=== PATIENT | female | born 2000 | race Hispanic/Latino ===

== ENCOUNTER 2020-04-25 07:55 | Emergency (ER) | payer OTHER ==
[~2020-04-25] VITALS: Ht 162.6 cm; Wt 92.1 kg
[2020-04-25] MEDS ORDERED: SODIUM CHLORIDE 0.9% 1000ML 1,000 ML IV SCH (08:45)
[2020-04-25] MEDS ORDERED: CEFTRIAXONE SOD 1 GM/NS 50 ML 50 ML IV ONE (08:45)
[2020-04-25] MEDS ORDERED: AZITHROMYCIN 250 MG TAB PO STA (08:47)
[2020-04-25] MEDS ORDERED: KETOROLAC TROMETHAMINE 30 MG/ML VIAL IV STA (08:54)
[2020-04-25] MEDS ORDERED: PHENAZOPYRIDINE HCL 100 MG TAB PO SCH (09:00)
--- NOTE | 2020-04-25 09:03 | Emergency Department Note ---
History of Present Illnes History of Present Illness Chief Complaint: Genitourinary History of Present Illness This is a 20 year old transgender female (male gender), who presents with acute onset burning on urination as well as urinary frequency that started last evening approximate 6 PM. Upon awakening this morning and urinating, blood was noted in the urine. The urinary frequency has continued and the hematuria has increased in amount. She is having some suprapubic "pressure and discomfort," and right flank pain that started this morning. The flank pain is intermittent, sharp and stabbing. Patient states that she has had frequent UTIs throughout her life, but has never been seen by urologist. Denies any fever, chills, nausea, or vomiting. There is no penile discharge. Patient has been having anal receptive intercourse and denies any vaginal intercourse. Patient complains of redness and irritation at the tip of the penis. She states that this irritation is chronic, but certainly worse over the last 24 hours. 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: No Onset (how long ago): hour(s) (15) Location: penis, suprapubic and right flank Quality: burning, aching, pain Radiation: Reports non-radiation Severity: moderate Onset quality: sudden Duration (how long): hour(s) (15) Timing of current episode: constant Progression: worsening Chronicity: new Context: Denies recent illness, Denies recent surgery, Denies trauma/injury, Denies new medications Relieving factors: none Exacerbating factors: none Associated symptoms: Reports denies other symptoms Treatments prior to arrival: none Risk factors: hx of UTI Past Medical/Family History Physician Review I have reviewed the patient's past medical and family history. Any updates have been documented here. Past Medical History Recent Fever: No Clinical Suspicion of Infectio: Yes New/Unexplained Change in Ment: No Other Medical History: Hx of UTI - last in 11/2019; Past Surgical History: None Social History Smoking Cessation: Never Smoker Alcohol Use: Occasional Any Illegal Drug Use: No TB Exposure/Symptoms: No Physically hurt or threatened: No Family History Family history of heart diseas: No Other Any Pre-Existing Lines (PICC,: No Is patient up to date on immun: No Review of Systems Review of Systems Constitutional: Denies chills, Denies fever, Denies weakness EENTM: Reports no symptoms Cardiovascular: Reports no symptoms Respiratory: Reports no symptoms Gastrointestinal: Reports abdominal pain (suprapubic;); Denies constipation, Denies diarrhea, Denies nausea, Denies vomiting Genitourinary: Reports dysuria, Reports frequency, Reports hematuria, Reports pain (inflammation of tip of penis;); Denies discharge Musculoskeletal: Reports no symptoms Integumentary: Reports no symptoms Neurological: Reports no symptoms Psychological: Reports no symptoms Review of other systems: All other systems negative Physical Exam Related Data Allergies: Coded Allergies: No Known Allergies (Unverified , 04/25/20) Vital signs reviewed: Yes Physical Exam CONSTITUTIONAL Constitutional: Present well-developed, Present well-nourished; Absent distressed, Absent ill appearing HENT HENT: Present normocephalic, Present atraumatic, Present oropharynx clear/moist, Present nose normal; Absent rhinorrhea HENT L/R: Present left ext ear normal, Present right ext ear normal EYES Eyes: Reports PERRL, Reports conjunctivae normal NECK Neck: Present ROM normal; Absent supple, Absent JVD, Absent cervical adenopathy PULMONARY Pulmonary: Present effort normal, Present breath sounds normal CARDIOVASCULAR Cardiovascular: Present regular rhythm, Present heart sounds normal, Present capillary refill normal, Present normal rate; Absent murmur GASTROINTESTINAL Abdominal: Present soft, Present nontender, Present bowel sounds normal, Present right CVA tenderness GENITOURINARY Genitourinary: Present other (uncircumcised male, testes descended bilaterally with no masses, mildly edematous, erythematous, tender, tip of the penis, with no lesions or discharge;) SKIN Skin: Present warm, Present dry; Absent rash MUSCULOSKELETAL Musculoskeletal: Present ROM normal NEUROLOGICAL Neurological: Present alert, Present oriented x 3, Present no gross motor or sensory deficits PSYCHOLOGICAL Psychological: Present mood/affect normal, Present judgement normal Results Laboratory Laboratory UA - barbara- moderate, ket - trace, blo - large, pro- > 300 mg/dl, nit - positive, tresa - large; CBC - nl except for WBC - 13.8, H/H = 12.8/37.9; CMP - nl except for K+ = 3.4; Lab results reviewed: Yes Imaging Imaging results reviewed: Yes Impressions [place] [address] Patient Name: DEBRA YOUNG MR #: [id number] : 2000 Age/Sex: 20/F Req #: [id number] [facility] Physician: Ordered by: BRANDT HANNAH MD Report #: [id number] Location: [facility] Room/Bed: Procedure: [id number] HOPD/CT ABD/PEL WO CONTRAST-HOPD Exam Date: 04/25/20 Exam Time: 0856 REPORT STATUS: Signed EXAM: CT Abdomen and Pelvis WITHOUT contrast INDICATION: Right flank pain and hematuria. COMPARISON: None. TECHNIQUE: Abdomen and pelvis were scanned utilizing a multidetector helical scanner from the lung base to the pubic symphysis without administration of IV contrast. Absence of intravenous contrast decreases sensitivity for detection of focal lesions and vascular pathology. Coronal and sagittal reformations were obtained. Routine protocol was performed. IV CONTRAST: None ORAL CONTRAST: None COMPLICATIONS: None RADIATION DOSE: Total DLP: 829.47 mGy*cm Estimated effective dose: (DLP x 0.015 x size factor) mSv CTDIvol has been reviewed. It is below the limits set by the Radiation Protocol Committee (RPC). Dose modulation, iterative reconstruction, and/or weight based adjustment of the mA/kV was utilized to reduce the radiation dose to as low as reasonably achievable. FINDINGS: LINES and TUBES: None. LOWER THORAX: Unremarkable HEPATOBILIARY: No focal hepatic lesions. No biliary ductal dilation. GALLBLADDER: No radio-opaque stones or sludge. No wall thickening. SPLEEN: No splenomegaly. PANCREAS: No focal masses or ductal dilatation. ADRENALS: No adrenal nodules KIDNEYS/URETERS: No hydronephrosis. No cystic or solid mass lesions. No stones. GI TRACT: No abnormal distention, wall thickening, or evidence of bowel obstruction. Appendix is normal. PELVIC ORGANS/BLADDER: Unremarkable. LYMPH NODES: There are multiple prominent lymph nodes in the right lower quadrant, none of which meet criteria for pathologic enlargement. VESSELS: Unremarkable. PERITONEUM / RETROPERITONEUM: No free air or fluid. BONES: Unremarkable. SOFT TISSUES: Unremarkable. IMPRESSION: 1. No evidence of renal stones or hydroureteronephrosis bilaterally. 2. Multiple prominent lymph nodes in the right lower quadrant which can be seen with mesenteric adenitis, a self-limiting inflammatory process that can present clinically with right lower quadrant pain. Signed by: Duncan Lunsford MD on 04/25/2020 9:24 AM Assessment & Plan Medical Decision Making MDM - Increase water intake, recommended at least 1 gallon of water per day for the next several days until infection is cleared - Take the Pyridium as directed, and follow-up if your symptoms persist after being on antibiotics for 48 hours. Return to the emergency room if symptoms worsen. - It is very important to follow-up with urology, regarding history of recurrent urinary tract infection. Please take the copies of diagnostics performed today in the ED with you to that visit. Reassessment Reassessment time: 10:00 Reassessment Pt feeling much better! Still having urinary frequency, but pain is decreased and no hematuria. Assessment & Plan Final Impression: (1) Acute hemorrhagic cystitis (2) Urethritis (3) Urinary frequency (4) Dysuria Depart Disposition: HOME, SELF-[facility] Meds Active Scripts Phenazopyridine Hcl (PHENAZOPYRIDINE HCL) 200 Mg Tablet, 1 TAB PO BID for urinary tract infection for 10 Days, #20 0 Refills Prov:BRANDT HANNAH MD 04/25/20 Cefdinir (OMNICEF) 300 Mg Capsule, 300 MG PO BID for urinary tract infection for 10 Days, #20 CAP 0 Refills Prov:BRANDT HANNAH MD 04/25/20 Medications in the ED Sodium Chloride 1,000 ml @ 0 mls/hr Q0M IV ; Start 04/25/20 at 08:45; Stop 05/25/20 at 08:44; Status UNV Ceftriaxone Sodium 50 ml @ 100 mls/hr ONCE ONCE IV ; Start 04/25/20 at 08:45; Stop 04/25/20 at 09:14; Status UNV Phenazopyridine HCl 200 mg PC PO ; Start 04/25/20 at 09:00; Stop 05/25/20 at 08:59; Status UNV BARNDT HANNAH MD Apr 25, 2020 09:03
[2020-04-25] MEDS ORDERED: SODIUM CHLORIDE 0.9% 1000ML 1,000 ML ONE (09:05)
[2020-04-25] MEDS ORDERED: AZITHROMYCIN 250 MG TAB ONE (09:05)
--- OUTSIDE RECORDS SUMMARY | 2020-04-25 09:14 | XMS REPORT | Continuity of Care Document ---
Author Author [facility] Organization [facility] Address [address] [place] [address] Phone Unavailable Care Team Providers Care [employer] Maker Name Role Phone Unavailable Unavailable Payers Payer Name Policy Type Policy Number Effective Date Expiration Date S ource Problems This patient has no known problems. Allergies, Adverse Reactions, Alerts Allergy Name Allergy Type Status Severity Reaction(s) Onset Date Inacti ve Date Treating Clinician Comments Source No Known Allergies DA Active U 2020-03-13 00:00:00 [facility] Medications This patient has no known medications. Procedures This patient has no known procedures. Results Test Description Test Time Test Comments Results Result Comments Source Novel Coronavirus 2019 nCoV 2020-03-15 20:40:00 Test Item Novel Coronavirus 2019 nCoV (test code = COVID19) Negative Nega tive Does patient have the clinical criteria consistent with COVID-19? YIs the patien t going to be discharged home? Y- XR CHEST 1 [id number] 00:37:00 FAX: Aster Gregory NP [place]: B St: REG Name: DEBRA STANLEY [facility] : [birth year] Age/S: 20/F [address] Unit #: [id number] Loc: [place], [place] [address] Phys: Aster Gregory SCREEN [employer]INTING [employer]IL [employer]PARER Acct: [id number] Dis Date: Status: REG ER PHONE #: [phone] Exam Date: 03/14/202033 FAX #: [phone] Reason: COUGH EXAMS: CPT CODE: [id number] XR CHEST 1 V 16910 EXAM: - XR CHEST 1 V HISTORY: Cough. COMPARISON: None available time of interpretation. FINDINGS: Single AP view of the chest is provided. Heart size and vascularity are within normal limits. The lungs are clear of focal consolidation. No effusion, pneumothorax, or acute osseous abnormality. IMPRESSION: No radiographic evid ence of acute cardiopulmonary process. at 0037 Reported and signed by: Luke Moore MD CC: Aster Gregory SCREEN PR[employer]ING ST[employer]IL PREPARER Technologist: Michael CASTRO(R) Trnscrd Date/Time/By: 03/14/2020 (0037) : By: [email or web address] Orig Print D/T: S: 03/14/2020 (0041) PAGE 1 Signed Report URINALYSIS COMPLETE 2020-03-14 00:21:00* Test Item Value Reference Range Interpretation Comments UA COLOR (test code = COLU) Light-Yellow YELLOW UA APPEARANCE (test code = APPU) CLEAR CLEAR UA GLUCOSE DIPSTICK (test code = DGLUU) NEGATIVE mg/dL NEGATIVE UA BILIRUBIN DIPSTICK (test code = BILU) NEGATIVE mg/dL NEGATIVE UA KETONE DIPSTICK (test code = KETU) NEGATIVE mg/dL NEGATIVE UA SPECIFIC GRAVITY (test code = SGU) 1.024 1.001-1.035 UA BLOOD DIPSTICK (test code = INGE) Negative mg/dL NEGATIVE UA PH DIPSTICK (test code = ELSIE) 8.0 5.0-8.0 UA PROTEIN DIPSTICK (test code = PROU) 10 (Trace) mg/dL NEGATIVE A UA UROBILINIOGEN DIPSTICK (test code = URO) 2.0 (1+) mg/dL NEGATIVE A UA NITRITE DIPSTICK (test code = JONO) NEGATIVE NEGATIVE UA LEUKOCYTE ESTERASE W REFLEX (test code = LEUUR) 25 Tiffanie/uL (Trace) Tiffanie/uL NEGATIVE A UA WBC (test code = WBCU) per HPF 0-5 UA RBC (test code = RBCU) per HPF 0-5 UA EPITHELIAL CELLS (test code = EPIU) per HPF Few UA BACTERIA (test code = BACU) per HPF NONE Urine Source? Clean CatchUR HCG [id number] 00:21:00* Test Item Value Reference Range Interpretation Comments UR HCG QUAL (test code = HCGQLU) NEGATIVE This HCGQL test is NOT applicable for MALE patients.Check with nurse about probable order error.If Tumor Marker Test needed, nurse should order test "HCGTU"(Test #[id number]) Urine Source? Clean CatchURINALYSIS [id number] 00:21:00* Test Item Value Reference Range Interpretation Comments UA COLOR (test code = COLU) Light-Yellow YELLOW UA APPEARANCE (test code = APPU) CLEAR CLEAR UA GLUCOSE DIPSTICK (test code = DGLUU) NEGATIVE mg/dL NEGATIVE UA BILIRUBIN DIPSTICK (test code = BILU) NEGATIVE mg/dL NEGATIVE UA KETONE DIPSTICK (test code = KETU) NEGATIVE mg/dL NEGATIVE UA SPECIFIC GRAVITY (test code = SGU) 1.024 1.001-1.035 UA BLOOD DIPSTICK (test code = INGE) Negative mg/dL NEGATIVE UA PH DIPSTICK (test code = ELSIE) 8.0 5.0-8.0 UA PROTEIN DIPSTICK (test code = PROU) 10 (Trace) mg/dL NEGATIVE A UA UROBILINIOGEN DIPSTICK (test code = URO) 2.0 (1+) mg/dL NEGATIVE A UA NITRITE DIPSTICK (test code = JONO) NEGATIVE NEGATIVE UA LEUKOCYTE ESTERASE W REFLEX (test code = LEUUR) 25 Tiffanie/uL (Trace) Tiffanie/uL NEGATIVE A UA WBC (test code = WBCU) 0-5 per HPF 0-5 UA RBC (test code = RBCU) 0-2 #/HPF 0-5 UA EPITHELIAL CELLS (test code = EPIU) FEW per HPF FEW UA BACTERIA (test code = BACU) NONE SEEN #/HPF NONE Urine Source? Clean CatchUR HCG [id number] 00:21:00* Test Item Value Reference Range Interpretation Comments UR HCG QUAL (test code = HCGQLU) NEGATIVE This HCGQL test is NOT applicable for MALE patients.Check with nurse about probable order error.If Tumor Marker Test needed, nurse should order test "HCGTU"(Test #[id number]) Urine Source? Clean CatchURINALYSIS [id number] 00:20:00* Test Item Value Reference Range Interpretation Comments UA COLOR (test code = COLU) Light-Yellow YELLOW UA APPEARANCE (test code = APPU) CLEAR CLEAR UA GLUCOSE DIPSTICK (test code = DGLUU) NEGATIVE mg/dL NEGATIVE UA BILIRUBIN DIPSTICK (test code = BILU) NEGATIVE mg/dL NEGATIVE UA KETONE DIPSTICK (test code = KETU) NEGATIVE mg/dL NEGATIVE UA SPECIFIC GRAVITY (test code = SGU) 1.024 1.001-1.035 UA BLOOD DIPSTICK (test code = INGE) Negative mg/dL NEGATIVE UA PH DIPSTICK (test code = ELSIE) 8.0 5.0-8.0 UA PROTEIN DIPSTICK (test code = PROU) 10 (Trace) mg/dL NEGATIVE A UA UROBILINIOGEN DIPSTICK (test code = URO) 2.0 (1+) mg/dL NEGATIVE A UA NITRITE DIPSTICK (test code = JONO) NEGATIVE NEGATIVE UA LEUKOCYTE ESTERASE W REFLEX (test code = LEUUR) 25 Tiffanie/uL (Trace) Tiffanie/uL NEGATIVE A UA WBC (test code = WBCU) per HPF 0-5 UA RBC (test code = RBCU) per HPF 0-5 UA EPITHELIAL CELLS (test code = EPIU) per HPF Few UA BACTERIA (test code = BACU) per HPF NONE Urine Source? Clean CatchUR HCG [id number] 00:20:00* Test Item Value Reference Range Interpretation Comments UR HCG QUAL (test code = HCGQLU) Urine Source? Clean Catch
--- NOTE | 2020-04-25 09:27 | Diagnostic Imaging Report ---
EXAM: CT Abdomen and Pelvis WITHOUT contrast INDICATION: Right flank pain and hematuria. COMPARISON: None. TECHNIQUE: Abdomen and pelvis were scanned utilizing a multidetector helical scanner from the lung base to the pubic symphysis without administration of IV contrast. Absence of intravenous contrast decreases sensitivity for detection of focal lesions and vascular pathology. Coronal and sagittal reformations were obtained. Routine protocol was performed. IV CONTRAST: None ORAL CONTRAST: None COMPLICATIONS: None RADIATION DOSE: Total DLP: 829.47 mGy*cm Estimated effective dose: (DLP x 0.015 x size factor) mSv CTDIvol has been reviewed. It is below the limits set by the Radiation Protocol Committee (RPC). Dose modulation, iterative reconstruction, and/or weight based adjustment of the mA/kV was utilized to reduce the radiation dose to as low as reasonably achievable. FINDINGS: LINES and TUBES: None. LOWER THORAX: Unremarkable HEPATOBILIARY: No focal hepatic lesions. No biliary ductal dilation. GALLBLADDER: No radio-opaque stones or sludge. No wall thickening. SPLEEN: No splenomegaly. PANCREAS: No focal masses or ductal dilatation. ADRENALS: No adrenal nodules KIDNEYS/URETERS: No hydronephrosis. No cystic or solid mass lesions. No stones. GI TRACT: No abnormal distention, wall thickening, or evidence of bowel obstruction. Appendix is normal. PELVIC ORGANS/BLADDER: Unremarkable. LYMPH NODES: There are multiple prominent lymph nodes in the right lower quadrant, none of which meet criteria for pathologic enlargement. VESSELS: Unremarkable. PERITONEUM / RETROPERITONEUM: No free air or fluid. BONES: Unremarkable. SOFT TISSUES: Unremarkable. IMPRESSION: 1. No evidence of renal stones or hydroureteronephrosis bilaterally. 2. Multiple prominent lymph nodes in the right lower quadrant which can be seen with mesenteric adenitis, a self-limiting inflammatory process that can present clinically with right lower quadrant pain. Signed by: Duncan Lunsford MD on 04/25/2020 9:24 AM
[2020-04-25] MEDS ORDERED: CEFDINIR300 MG PO (10:32)
[2020-04-25 10:33] VITALS: BP 128/68
[2020-04-25] MEDS ORDERED: PHENAZOPYRIDIN200 MG PO (10:35)
== END 2020-04-25 10:43 | disposition home or self-care (01) ==
LOC: FSED 08:17
DX: N30.01 Acute cystitis with hematuria (principal); N34.2 Other urethritis; R30.0 Dysuria; R35.0 Frequency of micturition
CPT/HCPCS: 74176; 80053; 81003; 85025; 87086; 87186; 96374; 99284; J0696; J1885; J7030

== ENCOUNTER 2021-12-21 19:54 | Emergency (ER) | payer OTHER ==
[~2021-12-21] VITALS: Ht 162.6 cm; Wt 92.1 kg
[~2021-12-21 19:54] MED LIST: CEFDINIR300 MG PO; PHENAZOPYRIDIN200 MG PO
[2021-12-21] MEDS ORDERED: ONDANSETRON HCL INJ 2MG/ML 2ML 2 MG/ML VIAL IV STA (20:16)
[2021-12-21] MEDS ORDERED: DICYCLOMINE HCL 20 MG/2 ML VIAL IM ONE (20:30)
[2021-12-21 20:49] LABS: BASOPHILS % 0.3 % (0.0-1.0); EOSINOPHILS # (AUTO) 0.1 (0.0-0.4); EOSINOPHILS % 0.7 % (0.0-6.0); HEMATOCRIT 39.2 % (34.2-44.1); LYMPHOCYTES # (AUTO) 0.8 (1.0-3.2); LYMPHOCYTES % 5.9 % (18.0-39.1); MEAN CORPUSCULAR HEMOGLOBIN 26.7 pg (28-32); MEAN CORPUSCULAR HGB CONC 33.2 g/dL (31-35); MEAN CORPUSCULAR VOLUME 80.5 fL (81-99); MONOCYTES # (AUTO) 0.7 (0.2-0.8); MONOCYTES % 4.8 % (4.4-11.3); NEUTROPHILS # (AUTO) 12.1 (2.1-6.9); NEUTROPHILS % 87.9 % (38.7-80.0); PLATELET COUNT 280 x10e3/uL (140-360); RED BLOOD COUNT 4.87 x10e6/uL (3.6-5.1); RED CELL DISTRIBUTION WIDTH 14.6 % (11.7-14.4)
[2021-12-21 20:52] LABS: CLARITY,URINE CLEAR (CLEAR); COLOR,URINE YELLOW (YELLOW); KETONES,URINE 2+ (NEGATIVE); LEUKOCYTE ESTERASE ,URINE NEGATIVE (NEGATIVE); NITRITE,URINE NEGATIVE (NEGATIVE); PROTEIN,URINE DIPSTICK NEGATIVE (NEGATIVE); URINE UROBILINOGEN 0.2 mg/dL (0.2 - 1)
[2021-12-21 21:02] LABS: BACTERIA,URINE FEW /HPF; EPITHELIAL CELLS,URINE FEW /LPF; WBC,URINE (MAN) 0-5 /HPF (0-5)
[2021-12-21 21:09] LABS: AMYLASE 62 U/L (25-125); LIPASE 16 U/L (8-78)
[2021-12-21 21:10] LABS: ALBUMIN/GLOBULIN RATIO 1.1 (0.8-2.0); ANION GAP 13.7 mmol/L (8-16); CALCIUM 8.6 mg/dL (8.4-10.2); CREATININE, SERUM 0.76 mg/dL (0.57-1.11); POTASSIUM 3.7 mmol/L (3.5-5.1)
[2021-12-21 22:49] VITALS: BP 127/81
== END 2021-12-21 22:51 | disposition home or self-care (01) ==
LOC: ER 20:17
DX: R10.13 Epigastric pain (principal); R10.33 Periumbilical pain; R11.0 Nausea
CPT/HCPCS: 36415; 76705; 80053; 81001; 81025; 82150; 83690; 85025; 99284; C9113; J0500; J2405